=== PATIENT | female | born 1960 | race Caucasian/White ===

== ENCOUNTER → 2017-04-21 | Outpatient (REF) | LOC: LAB 14:48 | DX: E03.9 Hypothyroidism, unspecified (principal) ==

== ENCOUNTER → 2018-12-07 | Outpatient (CLI) | payer OTHER | LOC: MAMMO 11:03 | DX: Z12.31 Encounter for screening mammogram for malignant neoplasm of breast (principal); N63.21 Unspecified lump in the left breast, upper outer quadrant; R92.2 Inconclusive mammogram ==

== ENCOUNTER → 2020-02-21 | Outpatient (CLI) | payer OTHER | LOC: MAMMO 10:45 | DX: Z12.31 Encounter for screening mammogram for malignant neoplasm of breast (principal); N63.11 Unspecified lump in the right breast, upper outer quadrant ==

== ENCOUNTER → 2020-02-25 | Outpatient (CLI) | payer OTHER | LOC: RAD 07:37 | DX: N60.01 Solitary cyst of right breast (principal) ==

== ENCOUNTER 2020-04-03 14:45 | Outpatient (RCR) | payer OTHER | END 2020-04-03 15:15 | disposition still patient (30) | LOC: PT 14:45 | DX: M17.11 Unilateral primary osteoarthritis, right knee (principal); S49.92XA Unspecified injury of left shoulder and upper arm, initial encounter ==

== ENCOUNTER → 2021-03-03 | Outpatient (CLI) | payer OTHER | LOC: MAMMO 10:29 | DX: Z12.31 Encounter for screening mammogram for malignant neoplasm of breast (principal) ==